=== PATIENT | female | born 1945 | race Caucasian/White ===

== ENCOUNTER → 2021-01-14 | Outpatient (CLI) | payer MEDICARE ==
[2017-01-27 07:52] VITALS: BP 76/52
[~2021-01-14] MED LIST: ALPR1TAB6 PO; ASPI-482 PO; BUSP15TA PO; CARV12.511 PO; CHOL100013 PO; CITA40TA5 PO; DIAZ5TAB4 PO; GLUC100018 PO; HYDR-2765 PO; HYDR-3135 PO; IRBE300T23 PO; ISOS60TA55 PO; LISI20TA18 PO; OXYC1TAB7 PO; PANT40TA77 PO; SULF1TAB24 PO; VENTOLIN HFA18 GM INH; WARF4TAB68 PO
[2021-01-14 08:25] LABS: CALCIUM 8.4 mg/dL (8.5-10.1); CREATININE 0.6 mg/dL (0.6-1.0); GFR 97.7
== END ==
LOC: LAB 07:40
PROVIDERS: ATTEND Internal Medicine Cardiovascular Disease
DX: R60.0 Localized edema (principal)
CPT/HCPCS: 36415; 80048

== ENCOUNTER 2021-04-30 18:45 | Inpatient (IN) | payer MEDICARE ==
[~2021-04-30] VITALS: Ht 165.1 cm; Wt 117.5 kg
[2021-04-30] MEDS ORDERED: ONDANSETRON PF 4 MG/2 ML VIAL. IVP ONE (19:00)
[2021-04-30] MEDS ORDERED: fentaNYL PF VIAL 100 MCG/2 ML VIAL IVP ONE (19:00)
--- NOTE | 2021-04-30 19:31 | PHYS DOC ---
Past Medical History Past Medical History: Anxiety, Arrhythmia, Hypertension, Pneumonia Additional Past Medical Histor: right hip dislocation x3 Past Surgical History: Hip Replacement, Knee Replacement Additional Past Surgical Histo: L knee and R hip Smoking Status: Current Every Day Smoker Alcohol Use: Occasionally Drug Use: None General Adult EDM: Chief Complaint: ABDOMINAL PAIN HPI: HPI: Patient is a 75 year old female who presents with 2 days of nausea, vomiting, constipation, right lower quadrant pain and dizziness with standing. She states that she did take a laxative when she had a small bowel movement yesterday. She is also complaining of lower bilateral edema but states her primary care recently started her on a "water pill." Denies fever, chest pain, syncope, headache, vision change, numbness or tingling, diarrhea, shortness of breath, burning with urination, flank pain. She is a history of hypertension, COPD, smoking, anxiety, arrhythmia, pneumonia, gastric bypass, she is right hip dislocation x3, knee replacement. Review of Systems: Review of Systems: Constitutional: Denies fever or chills. [] Eyes: Denies change in visual acuity. [] HENT: Denies nasal congestion or sore throat. [] Respiratory: Denies cough or shortness of breath. [] Cardiovascular: Denies chest pain or + bilateral lower edema. [] GI: +abdominal pain, +nausea, +vomiting, denies bloody stools or diarrhea. +constipation[] : Denies dysuria. [] Musculoskeletal: Denies back pain or joint pain. [] Integument: Denies rash. [] Neurologic: Denies headache, focal weakness or sensory changes. +dizziness with standing[] Endocrine: Denies polyuria or polydipsia. [] Lymphatic: Denies swollen glands. [] Psychiatric: Denies depression or anxiety. [] Heart Score: C/O Chest Pain: No Current Medications: Current Medications Medications (Trade) Dose Ordered Sig/Ashlie Start Time Stop Time Status Last Admin Dose Admin Fentanyl Citrate (Fentanyl 2ml Vial) 25 mcg 1X ONCE 04/30/21 19:00 04/30/21 19:01 DC Ondansetron HCl (Zofran) 4 mg 1X ONCE 04/30/21 19:00 04/30/21 19:01 DC Allergies: Allergies: Allergies Coded Allergies Type Severity Reaction Last Updated Verified Iodinated Contrast Media Allergy Severe 01/28/16 Yes Physical Exam: PE: Constitutional: Well developed, well nourished, no acute distress, non-toxic appearance. [] HENT: Normocephalic, atraumatic, bilateral external ears normal, oropharynx moist, no oral exudates, nose normal. [] Eyes: PERRLA, EOMI, conjunctiva normal, no discharge. [] Neck: Normal range of motion, no tenderness, supple, no stridor. [] Cardiovascular:Heart rate regular rhythm, no murmur [] Lungs & Thorax: Bilateral breath sounds clear to auscultation [] Abdomen: Bowel sounds normal, soft, RLQ tenderness, no masses, no pulsatile masses. [] Skin: Warm, dry, no erythema, no rash. Pale[] Back: No tenderness, no CVA tenderness. [] Extremities: No tenderness, no cyanosis, no clubbing, ROM intact, bilateral lower 2+ edema. [] Neurologic: Alert and oriented X 3, normal motor function, normal sensory function, no focal deficits noted. [] Psychologic: Affect normal, judgement normal, mood normal. [] EKG: EK and read by Dr. Ramsey is a sinus rhythm and no STEMI Radiology/Procedures: Radiology/Procedures: [] Impression: [facility] [address] [place] [address] IMAGING REPORT Signed PATIENT: VON WILSONNEACCOUNT: [id number] : 1945 LOCATION: ER AGE: 75 SEX: F EXAM STATUS: REG ER ORD. PHYSICIAN: NENA CURRY APRN REASON: soa, vomiting PROCEDURE: PORTABLE CHEST 1V XR CHEST 1V History: Reason: soa, vomiting / Spl. Instructions: / History: Comparison: September 03, 2016 Findings: Patchy bibasilar opacities. No pleural effusion. No pneumothorax. Portable technique accentuates cardiac size. Chronic left-sided rib fractures. Impression: 1. Patchy bibasilar opacities, may represent atelectasis or developing consolidations. Recommend follow-up. Electronically signed by: Maurice Lee DO (04/30/2021 7:34 PM) [facility] DICTATED and SIGNED BY: MAURICE LEE DO DATE: 04/30/21 [id number] [facility] [address] [place] [address] IMAGING REPORT Signed PATIENT: ROSE WILSON: [id number] : 1945 LOCATION: ER AGE: 75 SEX: F EXAM STATUS: REG ER ORD. PHYSICIAN: NENA CURRY APRN REASON: abd pain, tenderness, vomiting PROCEDURE: CT ABDOMEN PELVIS WO CONTRAST Exam: CT of abdomen and pelvis without contrast INDICATION: Abdominal pain, tenderness, vomiting TECHNIQUE: Sequential axial images through the abdomen and pelvis obtained without IV contrast. Sagittal and coronal reformatted images were reconstructed from the axial data and reviewed. Exposure: One or more of the following in the visualized dose reduction techni ques were utilized for this examination: 1. Automated exposure control 2. Adjustment of the MA and/or KV according to patient size 3. Use of iterative of reconstructive technique Comparisons: None FINDINGS: Heart size is normal. No pericardial effusion. Strandy opacities at the dependent portion lungs likely representing atelectasis. No pleural effusion. Evaluation of the solid abdominal organs is limited secondary to noncontrast technique. Liver, spleen, pancreas and adrenals are unremarkable. Gallbladder is decompressed. No perinephric inflammation or hydronephrosis. No renal or ureteral calculi are identified. Simple appearing left renal cyst is noted. Bladder is decompressed not well evaluated. Uterus not enlarged. No abnormal adnexal mass. Diverticulosis is noted in the descending and sigmoid colon. Postoperative changes of gastric bypass are noted. No obstruction. No free intra-abdominal air or fluid. Abdominal aorta has a normal course and caliber. No enlarged intra-abdominal lymph nodes are identified. No suspicious osseous lesions or acute fractures. Right hip arthroplasty changes are noted. IMPRESSION: 1. Postoperative changes of the abdomen as described above. No evidence for obstruction or acute abnormality. 2. Diverticulosis without evidence of acute diverticulitis. Electronically signed by: Yusuf Hood MD (04/30/2021 8:31 PM) [facility] DICTATED and SIGNED BY: YUSUF HOOD MD DATE: 04/30/[id number] 0 Course & Med Decision Making: Course & Med Decision Making Pertinent Labs and Imaging studies reviewed. (See chart for details) COVID-19 CRITERIA: The patient was evaluated during the global COVID-19 pandemic, and that diagnosis was suspected/considered upon their initial presentation. Their evaluation, treatment and testing was consistent with current guidelines for patients who present with complaints or symptoms that may be related to COVID-19. See HPI. Alert and oriented x4. Ambulatory steady gait. Speaks in full clear sentences. Abdomen is taut and right lower quadrant tenderness. Skin pale warm and dry. Rectal Exam: Normal tone, No mass, Positive control Stool: Brown Guaiac: Negative Hemoglobin is low. I have ordered 2 units of blood. Patient will be admitted to the hospital. Chest x-ray shows some possible developing opacities or consolidations. I have given Zosyn and blood cultures. CT abdomen pelvis showed no acute findings. I talked to Dr. Thompson for admission. He states to also consult GI. [] Aiyana Disclaimer: Aiyana Disclaimer: This electronic medical record was generated, in whole or in part, using a voice recognition dictation system. COVID-19 Patient Risks: Age 65 or older: Yes Sign of co-morbidity: Yes Exp to person + for COVID: No Exp to PUI: No Travel from affected area: No Lower respiratory symptoms: Yes Fever: No Other: Yes (N,V) PPE Use: Full PPE with N95 mask or PAPR: Yes Departure Departure Impression: Primary Impression: Anemia Qualified Codes: D64.9 - Anemia, unspecified Additional Impressions: Person under investigation for COVID-19 UTI (urinary tract infection) Qualified Codes: N39.0 - Urinary tract infection, site not specified Disposition: ADMITTED INPATIENT Admitting Physician: EVELINA Condition: STABLE Referrals: BRITTA ANDRADE (PCP) NENA CURRY FOREMAN OR SUPERVISOR AND OPERATOR Apr 30, 2021 19:31
--- NOTE | 2021-04-30 19:36 | RAD ---
XR CHEST 1V History: Reason: soa, vomiting / Spl. Instructions: / History: Comparison: September 03, 2016 Findings: Patchy bibasilar opacities. No pleural effusion. No pneumothorax. Portable technique accentuates card iac size. Chronic left-sided rib fractures. Impression: 1. Patchy bibasilar opacities, may represent atelectasis or developing consolidations. Recommend fol low-up. Electronically signed by: Maurice Lee DO (04/30/2021 7:34 PM) [facility]
[2021-04-30 20:04] LABS: BASO # 0.1 x10^3/uL (0.0-0.2); BASO % 1 % (0-3); EOS # 0.1 x10^3/uL (0.0-0.7); EOS % 2 % (0-3); LYMPH % 21 % (24-48); MEAN CORPUSCULAR HEMOGLOBIN 15 pg (25-35); MEAN CORPUSCULAR HGB CONC 28 g/dL (31-37); MEAN CORPUSCULAR VOLUME 54 fL (79-100); MONO # 0.4 x10^3/uL (0.0-1.1); MONO % 9 % (0-9); NEUT # 3.2 x10^3/uL (1.8-7.7); NEUT % 67 % (31-73); PLATELET COUNT 303 x10^3/uL (140-400); RED BLOOD COUNT 3.16 x10^6/uL (3.50-5.40); RED CELL DISTRIBUTION WIDTH 21.3 % (11.5-14.5); WHITE BLOOD COUNT 4.8 x10^3/uL (4.0-11.0)
[2021-04-30 20:07] LABS: HEMATOCRIT 17.1 % (36.0-47.0); HEMOGLOBIN 4.9 g/dL (12.0-15.5)
[2021-04-30 20:12] LABS: CALCIUM 8.9 mg/dL (8.5-10.1); CREATININE 0.6 mg/dL (0.6-1.0); GFR 97.7; POTASSIUM 3.4 mmol/L (3.5-5.1)
[2021-04-30] MEDS ORDERED: IV NORMAL SALINE 1000ML BAG 1,000 ML IV ONE (20:15)
[2021-04-30] MEDS ORDERED: PIPERACILLIN/TAZOBACTAM 3.375 GM in IV NORMAL SALINE 50ML 50 ML IV ONE (20:15)
[2021-04-30 20:18] LABS: ALBUMIN 2.8 g/dL (3.4-5.0); ALBUMIN/GLOBULIN RATIO 0.8 (1.0-1.7); TOTAL BILIRUBIN 1.3 mg/dL (0.2-1.0); TOTAL PROTEIN 6.4 g/dL (6.4-8.2)
--- NOTE | 2021-04-30 20:34 | RAD ---
Exam: CT of abdomen and pelvis without contrast INDICATION: Abdominal pain, tenderness, vomiting TECHNIQUE: Sequential axial images through the abdomen and pelvis obtained without IV contrast. Sagit willy and coronal reformatted images were reconstructed from the axial data and reviewed. Exposure: One or more of the following in the visualized dose reduction techniques were utilized for this examination: 1. Automated exposure control 2. Adjustment of the MA and/or KV according to patient size 3. Use of iterative of reconstructive technique Comparisons: None FINDINGS: Heart size is normal. No pericardial effusion. Strandy opacities at the dependent portion lungs likel y representing atelectasis. No pleural effusion. Evaluation of the solid abdominal organs is limited secondary to noncontrast technique. Liver, spleen, pancreas and adrenals are unremarkable. Gallbladder is decompressed. No perinephric inflammation or hydronephrosis. No renal or ureteral calculi are identified. Simple ap pearing left renal cyst is noted. Bladder is decompressed not well evaluated. Uterus not enlarged. No abnormal adnexal mass. Diverticulosis is noted in the descending and sigmoid colon. Postoperative changes of gastric bypass are noted. No obstruction. No free intra-abdominal air or fluid. Abdominal aorta has a normal course and caliber. No enlarged intra-abdominal lymph nodes are identified. No suspicious osseous lesions or acute fractures. Right hip arthroplasty changes are noted. IMPRESSION: 1. Postoperative changes of the abdomen as described above. No evidence for obstruction or acute abn ormality. 2. Diverticulosis without evidence of acute diverticulitis. Electronically signed by: Yusuf Mckenna MD (04/30/2021 8:31 PM) [facility]
[2021-04-30 20:39] LABS: ANISOCYTOSIS MARKED; HYPOCHROMIA MARKED; MICROCYTOSIS MARKED; PLT ESTIMATE ADEQUATE (ADEQUATE); POIKILOCYTOSIS SLIGHT
[2021-04-30 20:40] LABS: OVALOCYTES MOD; POLYCHROMASIA SLIGHT; SPHEROCYTES OCC
[2021-04-30 20:41] LABS: SCHISTOCYTES OCC
[2021-04-30] MEDS ORDERED: ONDANSETRON PF 4 MG/2 ML VIAL. IVP PRN (21:00)
[2021-04-30] MEDS ORDERED: ACETAMINOPHEN 325 MG TABLET. PO PRN (21:00)
[2021-04-30 21:12] LABS: BILIRUBIN,URINE SMALL (NEG); CLARITY,URINE CLEAR; NITRITE,URINE POSITIVE (NEG); PROTEIN,URINE 30 mg/dL (NEG-TRACE)
[2021-04-30 21:14] LABS: PROTHROMBIN TIME PATIENT 13.9 SEC (11.7-14.0)
[2021-04-30 21:21] LABS: COLOR,URINE DK YELLOW
[2021-04-30 21:22] LABS: BACTERIA,URINE MANY /HPF (0-FEW)
[2021-04-30 21:23] LABS: HYALINE CASTS, URINE MANY /HPF
[2021-04-30 21:26] LABS: RBC,URINE 0 /HPF (0-2)
[2021-04-30 21:50] LABS: FECAL OB PT NEGATIVE (NEG)
[2021-04-30 22:47] VITALS: BP 119/47
--- NOTE | 2021-04-30 23:00 | EKG ---
[facility] [address] [place] [address] Test Date: 2021-04-30 Test Time: 19:44:18 Pat Name: KEKE WILSON Department: Room: Gender: F Hotel Attendant: : 1945 Requested By: NENA CURRY Order Number: [id number] Reading MD: Measurements Intervals [place] Rate: 65 P: 36 MT: 208 QRS: -28 QRSD: 98 T: -9 QT: 434 QTc: 452 Interpretive Statements SINUS RHYTHM LEFTWARD AXIS T ABNORMALITY IN ANTERIOR LEADS ABNORMAL ECG RI6.02 Compared to ECG 04/30/2021 19:42:51 Prolonged QT interval no longer present T-wave abnormality still present
[2021-04-30 23:02] VITALS: BP 128/46
[2021-05-01] VITALS (15 sets, daily range): BP systolic 95–169; BP diastolic 42–61
--- NOTE | 2021-05-01 00:09 | NUR ---
The patient, KEKE WILSON, 75 y/o, F admitted by CHRIS GOODWIN MD, was given written information regarding hospital policies, unit procedures and contact persons. Valuables were checked and left with her.
--- NOTE | 2021-05-01 07:31 | PDOC1 ---
History and Physical Date of Admission Date of Admission DATE: 05/01/21 TIME: 07:09 Identification/Chief Complaint Chief Complaint Nausea, vomiting Source Source: Chart review, Patient History of Present Illness History of Present Illness Patient is 75-year-old female with past medical history COPD, HTN, gastric bypass surgery, presents to the ED with complaints of nausea and abdominal pain for the past 2 days. She describes her nausea is more of a "sour stomach". She is a history of similar symptoms in the past following her gastric bypass surgery, but the last time she had any similar symptoms was years ago. She also reports associated dyspnea on exertion, lethargy, and lightheadedness. She denies any melena, hematochezia, vomiting, hematemesis, fever, chest pain, syncope, dysuria, or headache. She denies any history of gastric ulcers or history of anemia. She has been vaccinated against COVID-19. Labs admission showed hemoglobin 4.9, hematocrit 17.1, MCV 54, potassium 3.4, albumin 2.8. Urinalysis was positive for nitrites, with small leukocyte esterase, many bacteria, and moderate squamous epithelial cells. Her rapid COVID-19 was negative, and her occult blood was negative. She received IV fluids and IV antibiotics in the ED. At the time my evaluation she is hungry and requesting food. Will admit patient for further medical management. Past Medical History Past Medical History COPD, HTN, CAD, arrhythmia, anxiety, right hip dislocation Past Surgical History Past Surgical History Appendectomy, cholecystectomy, gastric bypass, cardiac stent, right knee replacement, hip replacemen Family History Family History: Hypertension Social History Smoke: 1 pack per day ALCOHOL: none Drugs: None Current Problem List Problem List Problems Medical Problems: (1) Abdominal pain Status: Acute (2) Anemia Status: Acute (3) Nausea & vomiting Status: Acute (4) Person under investigation for COVID-19 Status: Acute (5) UTI (urinary tract infection) Status: Acute Current Medications Current Medications Current Medications Fentanyl Citrate (Fentanyl 2ml Vial) 25 mcg 1X ONCE IVP Last administered on 04/30/21at 20:01; Start 04/30/21 at 19:00; Stop 04/30/21 at 19:01; Status DC Ondansetron HCl (Zofran) 4 mg 1X ONCE IVP Last administered on 04/30/21at 20:01; Start 04/30/21 at 19:00; Stop 04/30/21 at 19:01; Status DC Sodium Chloride 1,000 ml @ 1,000 mls/hr 1X ONCE IV Last administered on 04/30/21at 21:33; Start 04/30/21 at 20:15; Stop 04/30/21 at 21:14; Status DC Piperacillin Sod/ Tazobactam Sod 3.375 gm/Sodium Chloride 50 ml @ 100 mls/hr 1X ONCE IV Last administered on 04/30/21at 21:33; Start 04/30/21 at 20:15; Stop 04/30/21 at 20:44; Status DC Ondansetron HCl (Zofran) 4 mg PRN Q8HRS PRN IVP NAUSEA/VOMITING 1ST CHOICE; Start 04/30/21 at 21:00; Stop 05/01/21 at 20:59 Acetaminophen (Tylenol) 650 mg PRN Q4HRS PRN PO FEVER > 100.3'F; Start 04/30/21 at 21:00; Stop 05/01/21 at 20:59 Active Scripts Active Protonix (Pantoprazole Sodium) 40 Mg Tablet.dr 1 Tab PO BID Reported Diazepam 5 Mg Tablet 5 Mg PO HS Irbesartan 300 Mg Tablet 0.5 Tab PO DAILY Alprazolam 1 Mg Tablet 1 Tab PO BID Carvedilol (Carvedilol) 12.5 Mg Tablet 1 Tab PO BID Isosorbide Mononitrate Er (Isosorbide Mononitrate) 60 Mg Tab.er.24h 1 Tab PO DAILY Allergies Allergies: Coded Allergies: Iodinated Contrast Media (Verified Allergy, Severe, 01/28/16) ROS Review of System GENERAL: No history of weight change, weakness or fevers. SKIN: No bruising, hair changes or rashes. EYES: No blurred, double or loss of vision. NOSE AND THROAT: No history of nosebleeds, hoarseness or sore throat. HEART: Denies chest pain, denies palpitations. LUNGS: Denies cough, hemoptysis, wheezing or shortness of breath. GASTROINTESTINAL: Nausea, vomiting, abdominal pain. Denies hematemesis or melena. GENITOURINARY: Denies dysuria, frequency, urgency, hematuria. NEUROLOGIC: Denies history of numbness, tingling, tremor or weakness. PSYCHIATRIC: Denies anxiety, denies depression. ENDOCRINE: No history of heat or cold intolerance, polyuria or polydipsia. EXTREMITIES: Denies muscle weakness, joint pain, pain on walking or stiffness. Physical Exam Physical Exam General: Alert, Oriented X3, Cooperative, No acute distress. Morbidly obese. HEENT: PERRLA, EOMI Lungs: Decreased breath sounds bilaterally, Normal air movement Heart: RRR, no murmurs Cardiovascular: S1, S2 Abdomen: Mild right lower quadrant abdominal tenderness. Normal bowel sounds, Soft. Extremities: +1 bilateral lower extremity edema. No clubbing, No cyanosis Skin: Pale appearing. No rashes, No significant lesion Neuro: Normal speech, Normal tone, Sensation intact Psych/Mental Status: Mental status NL, Mood NL Vitals Vitals Vital Signs Date Time Temp Pulse Resp B/P (MAP) Pulse Ox O2 Delivery O2 Flow Rate FiO2 05/01/21 04:52 98.0 68 18 111/59 98.0 05/01/21 03:11 95 Room Air Labs Labs Laboratory Tests Test 04/30/21 19:53 04/30/21 20:54 04/30/21 20:56 04/30/21 21:40 White Blood Count 4.8 x10^3/uL (4.0-11.0) Red Blood Count 3.16 x10^6/uL (3.50-5.40) Hemoglobin 4.9 g/dL (12.0-15.5) Hematocrit 17.1 % (36.0-47.0) Mean Corpuscular Volume 54 fL (79-100) Mean Corpuscular Hemoglobin 15 pg (25-35) Mean Corpuscular Hemoglobin Concent 28 g/dL (31-37) Red Cell Distribution Width 21.3 % (11.5-14.5) Platelet Count 303 x10^3/uL (140-400) Neutrophils (%) (Auto) 67 % (31-73) Lymphocytes (%) (Auto) 21 % (24-48) Monocytes (%) (Auto) 9 % (0-9) Eosinophils (%) (Auto) 2 % (0-3) Basophils (%) (Auto) 1 % (0-3) Neutrophils # (Auto) 3.2 x10^3/uL (1.8-7.7) Lymphocytes # (Auto) 1.0 x10^3/uL (1.0-4.8) Monocytes # (Auto) 0.4 x10^3/uL (0.0-1.1) Eosinophils # (Auto) 0.1 x10^3/uL (0.0-0.7) Basophils # (Auto) 0.1 x10^3/uL (0.0-0.2) Platelet Estimate Adequate (ADEQUATE) Polychromasia Slight Hypochromasia Marked Poikilocytosis Slight Anisocytosis Marked Microcytosis Marked Spherocytes Occ Ovalocytes Mod Schistocytes Occ Sodium Level 139 mmol/L (136-145) Potassium Level 3.4 mmol/L (3.5-5.1) Chloride Level 104 mmol/L (98-107) Carbon Dioxide Level 27 mmol/L (21-32) Anion Gap 8 (6-14) Blood Urea Nitrogen 7 mg/dL (7-20) Creatinine 0.6 mg/dL (0.6-1.0) Estimated GFR (Cockcroft-Gault) 97.7 BUN/Creatinine Ratio 12 (6-20) Glucose Level 118 mg/dL (70-99) Lactic Acid Level 1.6 mmol/L (0.4-2.0) Calcium Level 8.9 mg/dL (8.5-10.1) Magnesium Level 1.9 mg/dL (1.8-2.4) Total Bilirubin 1.3 mg/dL (0.2-1.0) Aspartate Amino Transf (AST/SGOT) 18 U/L (15-37) Alanine Aminotransferase (ALT/SGPT) 7 U/L (14-59) Alkaline Phosphatase 134 U/L (46-116) Troponin I Quantitative < 0.017 ng/mL (0.000-0.055) Total Protein 6.4 g/dL (6.4-8.2) Albumin 2.8 g/dL (3.4-5.0) Albumin/Globulin Ratio 0.8 (1.0-1.7) Lipase 57 U/L (73-393) Prothrombin Time 13.9 SEC (11.7-14.0) Prothromb Time International Ratio 1.1 (0.8-1.1) Activated Partial Thromboplast Time 37 SEC (24-38) SARS-CoV-2 Antigen (Rapid) Negative (NEGATIVE) Urine Collection Type Unknown Urine Color Dk yellow Urine Clarity Clear Urine pH 6.0 (<5.0-8.0) Urine Specific [place] 1.025 (1.000-1.030) Urine Protein 30 mg/dL (NEG-TRACE) Urine Glucose (UA) Negative mg/dL (NEG) Urine Ketones (Stick) Trace mg/dL (NEG) Urine Blood Negative (NEG) Urine Nitrite Positive (NEG) Urine Bilirubin Small (NEG) Urine Urobilinogen Dipstick 1.0 mg/dL (0.2 mg/dL) Urine Leukocyte Esterase Small (NEG) Urine RBC 0 /HPF (0-2) Urine WBC 11-20 /HPF (0-4) Urine Squamous Epithelial Cells Mod /LPF Urine Bacteria Many /HPF (0-FEW) Urine Hyaline Casts Many /HPF Urine Mucus Marked /LPF Stool Occult Blood Negative (NEG) Laboratory Tests Test 04/30/21 19:53 04/30/21 20:54 04/30/21 20:56 04/30/21 21:40 White Blood Count 4.8 x10^3/uL (4.0-11.0) Red Blood Count 3.16 x10^6/uL (3.50-5.40) Hemoglobin 4.9 g/dL (12.0-15.5) Hematocrit 17.1 % (36.0-47.0) Mean Corpuscular Volume 54 fL (79-100) Mean Corpuscular Hemoglobin 15 pg (25-35) Mean Corpuscular Hemoglobin Concent 28 g/dL (31-37) Red Cell Distribution Width 21.3 % (11.5-14.5) Platelet Count 303 x10^3/uL (140-400) Neutrophils (%) (Auto) 67 % (31-73) Lymphocytes (%) (Auto) 21 % (24-48) Monocytes (%) (Auto) 9 % (0-9) Eosinophils (%) (Auto) 2 % (0-3) Basophils (%) (Auto) 1 % (0-3) Neutrophils # (Auto) 3.2 x10^3/uL (1.8-7.7) Lymphocytes # (Auto) 1.0 x10^3/uL (1.0-4.8) Monocytes # (Auto) 0.4 x10^3/uL (0.0-1.1) Eosinophils # (Auto) 0.1 x10^3/uL (0.0-0.7) Basophils # (Auto) 0.1 x10^3/uL (0.0-0.2) Platelet Estimate Adequate (ADEQUATE) Polychromasia Slight Hypochromasia Marked Poikilocytosis Slight Anisocytosis Marked Microcytosis Marked Spherocytes Occ Ovalocytes Mod Schistocytes Occ Sodium Level 139 mmol/L (136-145) Potassium Level 3.4 mmol/L (3.5-5.1) Chloride Level 104 mmol/L (98-107) Carbon Dioxide Level 27 mmol/L (21-32) Anion Gap 8 (6-14) Blood Urea Nitrogen 7 mg/dL (7-20) Creatinine 0.6 mg/dL (0.6-1.0) Estimated GFR (Cockcroft-Gault) 97.7 BUN/Creatinine Ratio 12 (6-20) Glucose Level 118 mg/dL (70-99) Lactic Acid Level 1.6 mmol/L (0.4-2.0) Calcium Level 8.9 mg/dL (8.5-10.1) Magnesium Level 1.9 mg/dL (1.8-2.4) Total Bilirubin 1.3 mg/dL (0.2-1.0) Aspartate Amino Transf (AST/SGOT) 18 U/L (15-37) Alanine Aminotransferase (ALT/SGPT) 7 U/L (14-59) Alkaline Phosphatase 134 U/L (46-116) Troponin I Quantitative < 0.017 ng/mL (0.000-0.055) Total Protein 6.4 g/dL (6.4-8.2) Albumin 2.8 g/dL (3.4-5.0) Albumin/Globulin Ratio 0.8 (1.0-1.7) Lipase 57 U/L (73-393) Prothrombin Time 13.9 SEC (11.7-14.0) Prothromb Time International Ratio 1.1 (0.8-1.1) Activated Partial Thromboplast Time 37 SEC (24-38) SARS-CoV-2 Antigen (Rapid) Negative (NEGATIVE) Urine Collection Type Unknown Urine Color Dk yellow Urine Clarity Clear Urine pH 6.0 (<5.0-8.0) Urine Specific [place] 1.025 (1.000-1.030) Urine Protein 30 mg/dL (NEG-TRACE) Urine Glucose (UA) Negative mg/dL (NEG) Urine Ketones (Stick) Trace mg/dL (NEG) Urine Blood Negative (NEG) Urine Nitrite Positive (NEG) Urine Bilirubin Small (NEG) Urine Urobilinogen Dipstick 1.0 mg/dL (0.2 mg/dL) Urine Leukocyte Esterase Small (NEG) Urine RBC 0 /HPF (0-2) Urine WBC 11-20 /HPF (0-4) Urine Squamous Epithelial Cells Mod /LPF Urine Bacteria Many /HPF (0-FEW) Urine Hyaline Casts Many /HPF Urine Mucus Marked /LPF Stool Occult Blood Negative (NEG) Images Images PATIENT: NATHAN WILSONOUNT: [id number] : 1945 LOCATION: ER AGE: 75 SEX: F EXAM STATUS: REG ER ORD. PHYSICIAN: NENA CURRY APRN REASON: soa, vomiting PROCEDURE: PORTABLE CHEST 1V XR CHEST 1V History: Reason: soa, vomiting / Spl. Instructions: / History: Comparison: September 03, 2016 Findings: Patchy bibasilar opacities. No pleural effusion. No pneumothorax. Portable technique accentuates cardiac size. Chronic left-sided rib fractures. Impression: 1. Patchy bibasilar opacities, may represent atelectasis or developing consolidations. Recommend follow-up. PATIENT: NATHAN WILSONOUNT: [id number] : 1945 LOCATION: ER AGE: 75 SEX: F EXAM STATUS: REG ER ORD. PHYSICIAN: NENA CURRY APRN REASON: abd pain, tenderness, vomiting PROCEDURE: CT ABDOMEN PELVIS WO CONTRAST Exam: CT of abdomen and pelvis without contrast INDICATION: Abdominal pain, tenderness, vomiting TECHNIQUE: Sequential axial images through the abdomen and pelvis obtained without IV contrast. Sagittal and coronal reformatted images were reconstructed from the axial data and reviewed. Exposure: One or more of the following in the visualized dose reduction techniques were utilized for this examination: 1. Automated exposure control 2. Adjustment of the MA and/or KV according to patient size 3. Use of iterative of reconstructive technique Comparisons: None FINDINGS: Heart size is normal. No pericardial effusion. Strandy opacities at the dependent portion lungs likely representing atelectasis. No pleural effusion. Evaluation of the solid abdominal organs is limited secondary to noncontrast technique. Liver, spleen, pancreas and adrenals are unremarkable. Gallbladder is decompressed. No perinephric inflammation or hydronephrosis. No renal or ureteral calculi are identified. Simple appearing left renal cyst is noted. Bladder is decompressed not well evaluated. Uterus not enlarged. No abnormal adnexal mass. Diverticulosis is noted in the descending and sigmoid colon. Postoperative changes of gastric bypass are noted. No obstruction. No free intra-abdominal air or fluid. Abdominal aorta has a normal course and caliber. No enlarged intra-abdominal lymph nodes are identified. No suspicious osseous lesions or acute fractures. Right hip arthroplasty changes are noted. IMPRESSION: 1. Postoperative changes of the abdomen as described above. No evidence for obstruction or acute abnormality. 2. Diverticulosis without evidence of acute diverticulitis. VTE Prophylaxis Ordered VTE Prophylaxis Devices: Yes VTE Pharmacological Prophylaxi: No Assessment/Plan Assessment/Plan Severe microcytic anemia Moderate malnutrition HTN History COPD Moderate malnutrition Plan: Hemoglobin 4.9, hematocrit 17.1 on admission. Patient will be transfused 2 unit packed red blood cells. Fecal occult blood negative. We will continue to monitor hemoglobin for any evidence of ongoing bleeding. CRP and procalcitonin pending; if significantly elevated will continue treatment for possible community-acquired pneumonia Asymptomatic bacteriuria does not require antibiotic treatment Resume home medications FEN - Cardiac diet PPX - SCDs FULL CODE Dispo - inpatient for above Patient names her (Edi Pagan) as her surrogate decision-maker Justifications for Admission Other Justification CHARLEY YOUNG MD May 01, 2021 07:31
--- NOTE | 2021-05-01 09:23 | PDOC2 ---
GI CONSULT Date of Service: DATE: 05/01/21 TIME: 09:22 Reason For Consult: anemia, abdominal pain HPI: HPI: Pleasant 75 y/o female evaluated in ER for several reasons including pelvic pain ("ovary pain"), nausea, constipation, dizziness, and palpitations. Labs noted Hgb 4.4, MCV 54, RDW 21.3, normal plt and INR, BUN 7, Ct 0.6, Alk Phos 134, negative Hemoccult. For comparison, Hgb was in 11-12 range in 01/2017. Denies h/o anemia. Denies hematemesis, hematochezia, and melena. H/o occasional reflux improved w/ OTC chewable medications PRN. No dysphagia, vomiting, diarrhea, change in appetite, or weight loss. Typically no issues w/ constipation except for lately has been straining to pass very hard stools; some help with Miralax. S/p gastric bypass for weight loss 40 years ago. Reports normal colonoscopy in [place] a couple years ago except for two benign polyps. Diverticulosis noted on imaging. S/p cholecystectomy. Denies liver, pancreas, and PUD history. Takes ASA 325mg QD; doesn't think she takes other blood thinning medications but her will bring her med list later. Tolerating regular diet this morning. Vaccinated for COVID, rapid test negative. Feels better this morning - denies nausea and pelvic pain and has tolerated breakfast. PMH: PMH: ?CAD, HTN, COPD, renal cysts, UTI right hip replacement, left knee replacement, breast reduction, gastric bypass, appendectomy, cholecystectomy FH: Family History: Cancer (unknown kind) Social History: Smoke: Quit ALCOHOL: rare Drugs: None ROS: GEN: Denies fevers, chills, sweats HEENT: Denies blurred vision, sore throat CV:+palpitations RESP: +cough GI: Per HPI : Denies hematuria, dysuria ENDO: Denies weight changes NEURO: +dizziness MSK: Denies weakness, joint pain/swelling SKIN: Denies jaundice, pruritus Vitals: Vitals: Vital Signs Date Time Temp Pulse Resp B/P (MAP) Pulse Ox O2 Delivery O2 Flow Rate FiO2 05/01/21 07:00 98.2 71 16 125/44 (71) 91 Room Air 98.2 Labs: Labs: Laboratory Tests Test 04/30/21 19:53 04/30/21 20:54 04/30/21 20:56 04/30/21 21:40 White Blood Count 4.8 x10^3/uL (4.0-11.0) Red Blood Count 3.16 x10^6/uL (3.50-5.40) Hemoglobin 4.9 g/dL (12.0-15.5) Hematocrit 17.1 % (36.0-47.0) Mean Corpuscular Volume 54 fL (79-100) Mean Corpuscular Hemoglobin 15 pg (25-35) Mean Corpuscular Hemoglobin Concent 28 g/dL (31-37) Red Cell Distribution Width 21.3 % (11.5-14.5) Platelet Count 303 x10^3/uL (140-400) Neutrophils (%) (Auto) 67 % (31-73) Lymphocytes (%) (Auto) 21 % (24-48) Monocytes (%) (Auto) 9 % (0-9) Eosinophils (%) (Auto) 2 % (0-3) Basophils (%) (Auto) 1 % (0-3) Neutrophils # (Auto) 3.2 x10^3/uL (1.8-7.7) Lymphocytes # (Auto) 1.0 x10^3/uL (1.0-4.8) Monocytes # (Auto) 0.4 x10^3/uL (0.0-1.1) Eosinophils # (Auto) 0.1 x10^3/uL (0.0-0.7) Basophils # (Auto) 0.1 x10^3/uL (0.0-0.2) Platelet Estimate Adequate (ADEQUATE) Polychromasia Slight Hypochromasia Marked Poikilocytosis Slight Anisocytosis Marked Microcytosis Marked Spherocytes Occ Ovalocytes Mod Schistocytes Occ Sodium Level 139 mmol/L (136-145) Potassium Level 3.4 mmol/L (3.5-5.1) Chloride Level 104 mmol/L (98-107) Carbon Dioxide Level 27 mmol/L (21-32) Anion Gap 8 (6-14) Blood Urea Nitrogen 7 mg/dL (7-20) Creatinine 0.6 mg/dL (0.6-1.0) Estimated GFR (Cockcroft-Gault) 97.7 BUN/Creatinine Ratio 12 (6-20) Glucose Level 118 mg/dL (70-99) Lactic Acid Level 1.6 mmol/L (0.4-2.0) Calcium Level 8.9 mg/dL (8.5-10.1) Magnesium Level 1.9 mg/dL (1.8-2.4) Total Bilirubin 1.3 mg/dL (0.2-1.0) Aspartate Amino Transf (AST/SGOT) 18 U/L (15-37) Alanine Aminotransferase (ALT/SGPT) 7 U/L (14-59) Alkaline Phosphatase 134 U/L (46-116) Troponin I Quantitative < 0.017 ng/mL (0.000-0.055) Total Protein 6.4 g/dL (6.4-8.2) Albumin 2.8 g/dL (3.4-5.0) Albumin/Globulin Ratio 0.8 (1.0-1.7) Lipase 57 U/L (73-393) Prothrombin Time 13.9 SEC (11.7-14.0) Prothromb Time International Ratio 1.1 (0.8-1.1) Activated Partial Thromboplast Time 37 SEC (24-38) SARS-CoV-2 Antigen (Rapid) Negative (NEGATIVE) Urine Collection Type Unknown Urine Color Dk yellow Urine Clarity Clear Urine pH 6.0 (<5.0-8.0) Urine Specific [place] 1.025 (1.000-1.030) Urine Protein 30 mg/dL (NEG-TRACE) Urine Glucose (UA) Negative mg/dL (NEG) Urine Ketones (Stick) Trace mg/dL (NEG) Urine Blood Negative (NEG) Urine Nitrite Positive (NEG) Urine Bilirubin Small (NEG) Urine Urobilinogen Dipstick 1.0 mg/dL (0.2 mg/dL) Urine Leukocyte Esterase Small (NEG) Urine RBC 0 /HPF (0-2) Urine WBC 11-20 /HPF (0-4) Urine Squamous Epithelial Cells Mod /LPF Urine Bacteria Many /HPF (0-FEW) Urine Hyaline Casts Many /HPF Urine Mucus Marked /LPF Stool Occult Blood Negative (NEG) Allergies: Coded Allergies: Iodinated Contrast Media (Verified Allergy, Severe, 01/28/16) Medications: Current Medications Medications (Trade) Dose Ordered Sig/Ashlie Route PRN Reason Start Time Stop Time Status Last Admin Dose Admin Fentanyl Citrate (Fentanyl 2ml Vial) 25 mcg 1X ONCE IVP 04/30/21 19:00 04/30/21 19:01 DC 04/30/21 20:01 Ondansetron HCl (Zofran) 4 mg 1X ONCE IVP 04/30/21 19:00 04/30/21 19:01 DC 04/30/21 20:01 Sodium Chloride 1,000 ml @ 1,000 mls/hr 1X ONCE IV 04/30/21 20:15 04/30/21 21:14 DC 04/30/21 21:33 Piperacillin Sod/ Tazobactam Sod 3.375 gm/Sodium Chloride 50 ml @ 100 mls/hr 1X ONCE IV 04/30/21 20:15 04/30/21 20:44 DC 04/30/21 21:33 Imaging: Imaging: CT A/P 04/30/21 FINDINGS: Heart size is normal. No pericardial effusion. Strandy opacities at the dependent portion lungs likely representing atelectasis. No pleural effusion. Evaluation of the solid abdominal organs is limited secondary to noncontrast technique. Liver, spleen, pancreas and adrenals are unremarkable. Gallbladder is decompressed. No perinephric inflammation or hydronephrosis. No renal or ureteral calculi are identified. Simple appearing left renal cyst is noted. Bladder is decompressed not well evaluated. Uterus not enlarged. No abnormal adnexal mass. Diverticulosis is noted in the descending and sigmoid colon. Postoperative changes of gastric bypass are noted. No obstruction. No free intra-abdominal air or fluid. Abdominal aorta has a normal course and caliber. No enlarged intra-abdominal lymph nodes are identified. No suspicious osseous lesions or acute fractures. Right hip arthroplasty changes are noted. IMPRESSION: 1. Postoperative changes of the abdomen as described above. No evidence for obstruction or acute abnormality. 2. Diverticulosis without evidence of acute diverticulitis. CXR 04/30 Impression: 1. Patchy bibasilar opacities, may represent atelectasis or developing consolidations. Recommend follow-up. PE: GEN: NAD, sitting up in bed HEENT: Atraumatic, PERRLA LUNGS: diminished anteriorly HEART: RRR ABD: quiet BS, soft, large/obese, non-tender EXTREMITY: trace edema BLE SKIN: +tattoo NEURO/PSYCH: A & O 3 A/P: A/P: Pelvic pain, nausea, dizziness, palpitations - resolved Microcytic anemia (Hemoccult negative), UTI Occasional acid reflux H/o gastric bypass (40 years ago) CRC screen, h/o polyps - last colonoscopy a couple years ago Diverticulosis Change in bowel habits/constipation S/p cholecystectomy ASA use Rapid COVID negative, abnormal CXR -- Follow labs, transfuse as needed for Hgb > 7. Start PPI, adjust Miralax/treatment for constipation as needed. Check anemia parameters for completeness (though impressive MCV c/w iron deficiency). Consider EGD - will review timing (inpt vs output) w/ Dr. Hanson. Will ask for records from previous colonoscopy. IMELDA ARMIJO May 01, 2021 09:23
[2021-05-01] MEDS ORDERED: BISACODYL 5 MG TABLET.DR. PO PRN (10:00)
[2021-05-01 11:16] LABS: BASO % 1 % (0-3); EOS # 0.1 x10^3/uL (0.0-0.7); EOS % 2 % (0-3); HEMATOCRIT 22.7 % (36.0-47.0); LYMPH # 0.7 x10^3/uL (1.0-4.8); LYMPH % 14 % (24-48); MEAN CORPUSCULAR HEMOGLOBIN 18 pg (25-35); MEAN CORPUSCULAR HGB CONC 30 g/dL (31-37); MONO # 0.5 x10^3/uL (0.0-1.1); MONO % 10 % (0-9); NEUT # 3.8 x10^3/uL (1.8-7.7); NEUT % 74 % (31-73); PLATELET COUNT 265 x10^3/uL (140-400); RED BLOOD COUNT 3.75 x10^6/uL (3.50-5.40); RED CELL DISTRIBUTION WIDTH 26.3 % (11.5-14.5); WHITE BLOOD COUNT 5.1 x10^3/uL (4.0-11.0)
[2021-05-01 11:41] LABS: ALBUMIN 2.7 g/dL (3.4-5.0); ALBUMIN/GLOBULIN RATIO 0.8 (1.0-1.7); CALCIUM 8.4 mg/dL (8.5-10.1); CREATININE 0.8 mg/dL (0.6-1.0); GFR 70.1; POTASSIUM 3.2 mmol/L (3.5-5.1); TOTAL BILIRUBIN 2.2 mg/dL (0.2-1.0); TOTAL PROTEIN 6.2 g/dL (6.4-8.2)
[2021-05-01 11:43] LABS: HEMOGLOBIN 6.7 g/dL (12.0-15.5)
[2021-05-01 11:45] LABS: MEAN CORPUSCULAR VOLUME 60 fL (79-100)
[2021-05-01] MEDS: PANTOPRAZOLE 40 MG TABLET.DR. PO SCH (11:49)
[2021-05-01] MEDS: POLYETHYLENE GLYCOL 3350 17 GM PACKET. PO SCH (11:50)
[2021-05-01] MEDS ORDERED: CLOP75TA PO (12:08)
[2021-05-01] MEDS ORDERED: CARV12.511 PO (12:08)
[2021-05-01] MEDS ORDERED: PANT40TA77 PO (12:08)
[2021-05-01] MEDS ORDERED: DIAZ2TAB PO (12:08)
[2021-05-01] MEDS ORDERED: IRBE150T21 PO (12:08)
[2021-05-01] MEDS ORDERED: DULO30CA2 PO (12:08)
[2021-05-01] MEDS ORDERED: ATOR40TA59 PO (12:08)
[2021-05-01] MEDS ORDERED: CARV25TA2 PO (12:08)
[2021-05-01] MEDS ORDERED: ASPI325T8 PO (12:08)
[2021-05-01] MEDS ORDERED: POTASSIUM CHLORIDE 20 MEQ TABLET.ER. PO ONE (12:30)
--- NOTE | 2021-05-01 12:39 | NUR ---
SW following. Discussed with RN, pt from home with family, room air, cardiac diet. Pt received blood yesterday. COVID-19 negative. GI following. RN advised no SW needs at this time. SW will continue to follow.
[2021-05-01] MEDS: LOSARTAN POTASSIUM 25 MG TABLET. PO SCH (13:10)
[2021-05-01] MEDS: ISOSORBIDE MONONITRATE ER 30 MG TAB.ER.24H PO SCH (13:10)
[2021-05-01] MEDS: DULoxetine HCL 30 MG CAPSULE.DR PO SCH (13:10)
[2021-05-01] MEDS: CLOPIDOGREL BISULFATE 75 MG TABLET PO SCH (13:10)
[2021-05-01] MEDS: ASPIRIN 325 MG TABLET PO SCH (13:10)
[2021-05-01] MEDS: ALPRAZolam 1 MG TABLET PO SCH (14:59)
[2021-05-01] MEDS: CYANOCOBALAMIN (VITAMIN B-12) 1,000 MCG/ML VIAL. IM SCH (15:00)
[2021-05-01] MEDS: CARVEDILOL 12.5 MG TABLET. PO SCH (18:14)
[2021-05-01] MEDS: FERROUS SULFATE 325 MG TABLET. PO SCH (18:15)
[2021-05-01 18:54] LABS: HEMOGLOBIN 7.1 g/dL (12.0-15.5)
[2021-05-01] MEDS: diazePAM 2 MG TABLET PO SCH (20:39)
[2021-05-01] MEDS: ATORVASTATIN CALCIUM 40 MG TABLET. PO SCH (20:40)
[2021-05-02] VITALS (11 sets, daily range): BP systolic 100–164; BP diastolic 41–73
[2021-05-02 06:31] LABS: BASO % 0 % (0-3); EOS # 0.3 x10^3/uL (0.0-0.7); EOS % 6 % (0-3); LYMPH # 0.8 x10^3/uL (1.0-4.8); LYMPH % 18 % (24-48); MEAN CORPUSCULAR HEMOGLOBIN 19 pg (25-35); MEAN CORPUSCULAR HGB CONC 30 g/dL (31-37); MEAN CORPUSCULAR VOLUME 62 fL (79-100); MONO # 0.5 x10^3/uL (0.0-1.1); MONO % 10 % (0-9); NEUT % 65 % (31-73); PLATELET COUNT 245 x10^3/uL (140-400); RED BLOOD COUNT 3.68 x10^6/uL (3.50-5.40); RED CELL DISTRIBUTION WIDTH 29.5 % (11.5-14.5); WHITE BLOOD COUNT 4.6 x10^3/uL (4.0-11.0)
[2021-05-02 06:39] LABS: HEMOGLOBIN 6.8 g/dL (12.0-15.5)
[2021-05-02 06:45] LABS: CALCIUM 7.9 mg/dL (8.5-10.1); CREATININE 0.8 mg/dL (0.6-1.0); GFR 70.1; POTASSIUM 3.4 mmol/L (3.5-5.1)
--- NOTE | 2021-05-02 10:05 | PDOC ---
Date of Service: DATE: 05/02/21 TIME: 10:00 Subjective: Subjective: Feels much better. Still no obvious bleeding. Tolerating diet. Objective: Vital Signs: Vital Signs Date Time Temp Pulse Resp B/P (MAP) Pulse Ox O2 Delivery O2 Flow Rate FiO2 05/02/21 07:00 98.3 70 20 125/44 (71) 90 Room Air 98.3 Labs: Laboratory Tests Test 05/01/21 10:10 05/01/21 18:20 05/02/21 06:12 White Blood Count 5.1 x10^3/uL 4.6 x10^3/uL Red Blood Count 3.79 x10^6/uL 3.68 x10^6/uL Hemoglobin 6.7 g/dL 7.1 g/dL 6.8 g/dL Hematocrit 22.7 % 24.0 % 23.0 % Mean Corpuscular Volume 60 fL 62 fL Mean Corpuscular Hemoglobin 18 pg 19 pg Mean Corpuscular Hemoglobin Concent 30 g/dL 29 g/dL 30 g/dL Red Cell Distribution Width 26.3 % 29.5 % Platelet Count 265 x10^3/uL 245 x10^3/uL Neutrophils (%) (Auto) 74 % 65 % Lymphocytes (%) (Auto) 14 % 18 % Monocytes (%) (Auto) 10 % 10 % Eosinophils (%) (Auto) 2 % 6 % Basophils (%) (Auto) 1 % 0 % Neutrophils # (Auto) 3.8 x10^3/uL 3.0 x10^3/uL Lymphocytes # (Auto) 0.7 x10^3/uL 0.8 x10^3/uL Monocytes # (Auto) 0.5 x10^3/uL 0.5 x10^3/uL Eosinophils # (Auto) 0.1 x10^3/uL 0.3 x10^3/uL Basophils # (Auto) 0.0 x10^3/uL 0.0 x10^3/uL Absolute Reticulocyte Count 0.069 x10^6/uL Percent Reticulocyte Count 1.8 % Immature Reticulocyte Fraction 0.48 Sodium Level 143 mmol/L 142 mmol/L Potassium Level 3.2 mmol/L 3.4 mmol/L Chloride Level 107 mmol/L 107 mmol/L Carbon Dioxide Level 28 mmol/L 30 mmol/L Anion Gap 8 5 Blood Urea Nitrogen 7 mg/dL 8 mg/dL Creatinine 0.8 mg/dL 0.8 mg/dL Estimated GFR (Cockcroft-Gault) 70.1 70.1 BUN/Creatinine Ratio 9 Glucose Level 115 mg/dL 91 mg/dL Calcium Level 8.4 mg/dL 7.9 mg/dL Iron Level 17 ug/dL Total Iron Binding Capacity 401 ug/dL Iron Saturation 4 % Total Bilirubin 2.2 mg/dL Aspartate Amino Transf (AST/SGOT) 7 U/L Alanine Aminotransferase (ALT/SGPT) 7 U/L Alkaline Phosphatase 130 U/L C-Reactive Protein, Quantitative 1.2 mg/L Total Protein 6.2 g/dL Albumin 2.7 g/dL Albumin/Globulin Ratio 0.8 Vitamin B12 Level 146 pg/mL Procalcitonin < 0.10 ng/mL BLOOD CULTURE Preliminary NO GROWTH AFTER 1 DAY PE: GEN: NAD LUNGS: diminished anteriorly, room air HEART: RRR ABD: S/NT, large/overweight NEURO/PSYCH: A & O 3 A/P: Anemia - iron and B12 deficient - replacement started, ongoing need for transfusions w/o obvious bleeding H/o reflux, s/p gastric bypass, recent constipation ?CAD - Plavix and ASA on home med list - getting ASA here COVID negative, ?UTI -- Pt preference to avoid EGD - will consider as outpt - our office will follow-up. Discussed need for iron (and possible adverse effects) and B12 supplementation in some form. Would continue PPI. Could consider Carafate. Adjust Miralax as needed. Justicifation of Admission Dx: Justifications for Admission: Justification of Admission Dx: Yes IMELDA ARMIJO May 02, 2021 10:05
[2021-05-02] MEDS: ASPIRIN 325 MG TABLET PO SCH (10:49)
[2021-05-02] MEDS: ISOSORBIDE MONONITRATE ER 30 MG TAB.ER.24H PO SCH (10:49)
[2021-05-02] MEDS: PANTOPRAZOLE 40 MG TABLET.DR. PO SCH (10:49)
[2021-05-02] MEDS: DULoxetine HCL 30 MG CAPSULE.DR PO SCH (10:49)
[2021-05-02] MEDS: ALPRAZolam 1 MG TABLET PO SCH ×2 (10:49→15:04)
[2021-05-02] MEDS: CARVEDILOL 12.5 MG TABLET. PO SCH ×2 (10:50→17:53)
[2021-05-02] MEDS: FERROUS SULFATE 325 MG TABLET. PO SCH ×2 (10:50→17:54)
[2021-05-02] MEDS: CLOPIDOGREL BISULFATE 75 MG TABLET PO SCH (10:50)
[2021-05-02] MEDS: LOSARTAN POTASSIUM 25 MG TABLET. PO SCH (10:50)
[2021-05-02] MEDS: CYANOCOBALAMIN (VITAMIN B-12) 1,000 MCG/ML VIAL. IM SCH (10:51)
[2021-05-02] MEDS: POLYETHYLENE GLYCOL 3350 17 GM PACKET. PO SCH (10:51)
--- NOTE | 2021-05-02 12:01 | PDOC ---
[employer] PROGRESS NOTE Date of Service DOS: DATE: 05/02/21 TIME: 11:59 Chief Complaint Chief Complaint Severe microcytic anemia Moderate malnutrition HTN History COPD Moderate malnutrition Plan: Hemoglobin 4.9, hematocrit 17.1 on admission. Patient will be transfused 2 unit packed red blood cells. Fecal occult blood negative. We will continue to monitor hemoglobin for any evidence of ongoing bleeding. CRP and procalcitonin pending; if significantly elevated will continue treatment for possible community-acquired pneumonia Asymptomatic bacteriuria does not require antibiotic treatment Resume home medications FEN - Cardiac diet PPX - SCDs FULL CODE Dispo - inpatient for above Patient names her (Edi Pagan) as her surrogate decision-maker History of Present Illness History of Present Illness Patient is 75-year-old female with past medical history COPD, HTN, gastric bypass surgery, presents to the ED with complaints of nausea and abdominal pain for the past 2 days. She describes her nausea is more of a "sour stomach". She is a history of similar symptoms in the past following her gastric bypass surgery, but the last time she had any similar symptoms was years ago. She also reports associated dyspnea on exertion, lethargy, and lightheadedness. She denies any melena, hematochezia, vomiting, hematemesis, fever, chest pain, syncope, dysuria, or headache. She denies any history of gastric ulcers or history of anemia. She has been vaccinated against COVID-19. Labs admission showed hemoglobin 4.9, hematocrit 17.1, MCV 54, potassium 3.4, albumin 2.8. Urinalysis was positive for nitrites, with small leukocyte esterase, many bacteria, and moderate squamous epithelial cells. Her rapid COVID-19 was negative, and her occult blood was negative. She received IV fluids and IV antibiotics in the ED. At the time my evaluation she is hungry and requesting food. Will admit patient for further medical management. 05/02/2021: Hemoglobin 6.8 today after 2 units PRBC. Will transfuse third unit today. GI has been consulted to help with source of blood loss. Labs very consistent with iron deficiency anemia. Continue to monitor hemoglobin. Vitals/I&O Vitals/I&O: Vital Signs Date Time Temp Pulse Resp B/P (MAP) Pulse Ox O2 Delivery O2 Flow Rate FiO2 05/02/21 11:00 98.3 62 20 135/46 98.3 05/02/21 10:44 92 Room Air I & O 05/01/21 05/01/21 05/02/21 15:00 23:00 07:00 Intake Total 480 ml 643 ml 760 ml Balance 480 ml 643 ml 760 ml Physical Exam General: Alert, Oriented X3, Cooperative, No acute distress Heart: Regular rate Lungs: Clear Abdomen: Soft, No tenderness Extremities: No clubbing, No cyanosis Skin: No rashes, No breakdown Labs Labs: Laboratory Tests Test 05/01/21 18:20 05/02/21 06:12 Hemoglobin 7.1 g/dL (12.0-15.5) 6.8 g/dL (12.0-15.5) Hematocrit 24.0 % (36.0-47.0) 23.0 % (36.0-47.0) Mean Corpuscular Hemoglobin Concent 29 g/dL (31-37) 30 g/dL (31-37) White Blood Count 4.6 x10^3/uL (4.0-11.0) Red Blood Count 3.68 x10^6/uL (3.50-5.40) Mean Corpuscular Volume 62 fL (79-100) Mean Corpuscular Hemoglobin 19 pg (25-35) Red Cell Distribution Width 29.5 % (11.5-14.5) Platelet Count 245 x10^3/uL (140-400) Neutrophils (%) (Auto) 65 % (31-73) Lymphocytes (%) (Auto) 18 % (24-48) Monocytes (%) (Auto) 10 % (0-9) Eosinophils (%) (Auto) 6 % (0-3) Basophils (%) (Auto) 0 % (0-3) Neutrophils # (Auto) 3.0 x10^3/uL (1.8-7.7) Lymphocytes # (Auto) 0.8 x10^3/uL (1.0-4.8) Monocytes # (Auto) 0.5 x10^3/uL (0.0-1.1) Eosinophils # (Auto) 0.3 x10^3/uL (0.0-0.7) Basophils # (Auto) 0.0 x10^3/uL (0.0-0.2) Sodium Level 142 mmol/L (136-145) Potassium Level 3.4 mmol/L (3.5-5.1) Chloride Level 107 mmol/L (98-107) Carbon Dioxide Level 30 mmol/L (21-32) Anion Gap 5 (6-14) Blood Urea Nitrogen 8 mg/dL (7-20) Creatinine 0.8 mg/dL (0.6-1.0) Estimated GFR (Cockcroft-Gault) 70.1 Glucose Level 91 mg/dL (70-99) Calcium Level 7.9 mg/dL (8.5-10.1) Assessment and Plan Assessmemt and Plan Problems Medical Problems: (1) Abdominal pain Status: Acute (2) Anemia Status: Acute (3) Nausea & vomiting Status: Acute (4) Person under investigation for COVID-19 Status: Acute (5) UTI (urinary tract infection) Status: Acute Comment Review of Relevant I have reviewed the following items esha (where applicable) has been applied. Medications: Current Medications Medications (Trade) Dose Ordered Sig/Ashlie Route PRN Reason Start Time Stop Time Status Last Admin Dose Admin Ferrous Sulfate (Feosol) 325 mg BIDWMEALS PO 05/01/21 17:00 05/02/21 10:50 Potassium Chloride (Klor-Con) 20 meq 1X ONCE PO 05/01/21 12:30 05/01/21 17:30 DC 05/01/21 13:10 Alprazolam (Xanax) 1 mg BID92 PO 05/01/21 14:00 05/02/21 10:49 Aspirin (Isaura Aspirin) 325 mg DAILY PO 05/01/21 13:00 05/02/21 10:49 Atorvastatin Calcium (Lipitor) 80 mg QHS PO 05/01/21 21:00 05/01/21 20:40 Carvedilol (Coreg) 12.5 mg DAILYWSUP PO 05/01/21 17:00 05/01/21 18:14 Clopidogrel Bisulfate (Plavix) 75 mg DAILY PO 05/01/21 13:00 05/02/21 10:50 Diazepam (Valium) 2 mg HS PO 05/01/21 21:00 05/01/21 20:39 Duloxetine HCl (Cymbalta) 30 mg DAILY PO 05/01/21 13:00 05/02/21 10:49 Carvedilol (Coreg) 25 mg DAILYWBKFT PO 05/02/21 08:00 05/02/21 10:50 Losartan Potassium (Cozaar) 25 mg DAILY PO 05/01/21 13:00 05/02/21 10:50 Isosorbide Mononitrate (Imdur) 60 mg DAILY PO 05/01/21 13:00 05/02/21 10:49 Cyanocobalamin (Vitamin B-12 Inj) 1,000 mcg DAILY IM 05/01/21 13:15 05/02/21 10:51 Justifications for Admission Other Justification CHARLEY YOUNG MD May 02, 2021 12:01
[2021-05-02 16:32] LABS: HEMATOCRIT 25.8 % (36.0-47.0); HEMOGLOBIN 7.7 g/dL (12.0-15.5)
[2021-05-02] MEDS ORDERED: POTASSIUM CHLORIDE 20 MEQ TABLET.ER. PO ONE (17:00)
[2021-05-02] MEDS: ATORVASTATIN CALCIUM 40 MG TABLET. PO SCH (20:19)
[2021-05-02] MEDS: diazePAM 2 MG TABLET PO SCH (20:19)
[2021-05-03 03:00] VITALS: BP 119/57
[2021-05-03 07:00] VITALS: BP 131/55
[2021-05-03] MEDS: POLYETHYLENE GLYCOL 3350 17 GM PACKET. PO SCH (09:21)
[2021-05-03] MEDS: ISOSORBIDE MONONITRATE ER 30 MG TAB.ER.24H PO SCH (09:22)
[2021-05-03 09:30] LABS: BASO % 1 % (0-3); CALCIUM 8.2 mg/dL (8.5-10.1); CREATININE 0.7 mg/dL (0.6-1.0); EOS # 0.3 x10^3/uL (0.0-0.7); EOS % 6 % (0-3); GFR 81.8; LYMPH # 0.8 x10^3/uL (1.0-4.8); LYMPH % 15 % (24-48); MEAN CORPUSCULAR HEMOGLOBIN 19 pg (25-35); MEAN CORPUSCULAR HGB CONC 30 g/dL (31-37); MEAN CORPUSCULAR VOLUME 65 fL (79-100); MONO # 0.4 x10^3/uL (0.0-1.1); MONO % 8 % (0-9); NEUT # 3.6 x10^3/uL (1.8-7.7); NEUT % 71 % (31-73); PLATELET COUNT 238 x10^3/uL (140-400); RED BLOOD COUNT 4.15 x10^6/uL (3.50-5.40); WHITE BLOOD COUNT 5.1 x10^3/uL (4.0-11.0)
[2021-05-03] MEDS: PANTOPRAZOLE 40 MG TABLET.DR. PO SCH (09:31)
[2021-05-03] MEDS: CARVEDILOL 12.5 MG TABLET. PO SCH ×2 (09:31→17:03)
[2021-05-03] MEDS: DULoxetine HCL 30 MG CAPSULE.DR PO SCH (09:31)
[2021-05-03] MEDS: ASPIRIN 325 MG TABLET PO SCH (09:31)
[2021-05-03] MEDS: CLOPIDOGREL BISULFATE 75 MG TABLET PO SCH (09:31)
[2021-05-03] MEDS: FERROUS SULFATE 325 MG TABLET. PO SCH ×2 (09:31→17:03)
[2021-05-03] MEDS: ALPRAZolam 1 MG TABLET PO SCH ×2 (09:31→14:59)
[2021-05-03] MEDS: LOSARTAN POTASSIUM 25 MG TABLET. PO SCH (09:32)
[2021-05-03] MEDS: CYANOCOBALAMIN (VITAMIN B-12) 1,000 MCG/ML VIAL. IM SCH (09:32)
[2021-05-03 11:00] VITALS: BP 123/58
--- NOTE | 2021-05-03 11:51 | NUR ---
SW following. Discussed with RN, pt from home with family, room air, cardiac diet. COVID-19 negative. RN advised no SW needs at this time. SW will continue to follow.
--- NOTE | 2021-05-03 12:08 | PDOC ---
Date of Service: DATE: 05/03/21 TIME: 12:05 Subjective: Subjective: Feels much better, really wants to go home. Asks about reducing ASA dose. Objective: Vital Signs: Vital Signs Date Time Temp Pulse Resp B/P (MAP) Pulse Ox O2 Delivery O2 Flow Rate FiO2 05/03/21 11:00 97.7 55 18 123/58 (79) 94 Room Air 97.7 Labs: Laboratory Tests Test 05/02/21 16:20 05/03/21 08:55 Hemoglobin 7.7 g/dL 8.0 g/dL Hematocrit 25.8 % 27.0 % Mean Corpuscular Hemoglobin Concent 30 g/dL 30 g/dL White Blood Count 5.1 x10^3/uL Red Blood Count 4.15 x10^6/uL Mean Corpuscular Volume 65 fL Mean Corpuscular Hemoglobin 19 pg Red Cell Distribution Width 32.0 % Platelet Count 238 x10^3/uL Neutrophils (%) (Auto) 71 % Lymphocytes (%) (Auto) 15 % Monocytes (%) (Auto) 8 % Eosinophils (%) (Auto) 6 % Basophils (%) (Auto) 1 % Neutrophils # (Auto) 3.6 x10^3/uL Lymphocytes # (Auto) 0.8 x10^3/uL Monocytes # (Auto) 0.4 x10^3/uL Eosinophils # (Auto) 0.3 x10^3/uL Basophils # (Auto) 0.0 x10^3/uL Sodium Level 141 mmol/L Potassium Level 4.0 mmol/L Chloride Level 107 mmol/L Carbon Dioxide Level 29 mmol/L Anion Gap 5 Blood Urea Nitrogen 7 mg/dL Creatinine 0.7 mg/dL Estimated GFR (Cockcroft-Gault) 81.8 Glucose Level 109 mg/dL Calcium Level 8.2 mg/dL PE: GEN: NAD LUNGS: CTAB HEART: RRR ABD: S/ND/NT NEURO/PSYCH: A & O 3 A/P: Anemia - iron and B12 deficient H/o reflux, s/p gastric bypass, constipation CAD w/ cardiac stents - placed >1 year ago, on ASA 325mg QD + Plavix COVID negative -- Hgb improved w/ transfusions, no obvious GI bleeding. DC per primary on PPI, iron, B12, and Miralax. Monitor labs w/ PCP. Follow-up w/ cardiology re: her questions about ASA, etc. She will consider EGD as outpt. Justicifation of Admission Dx: Justifications for Admission: Justification of Admission Dx: Yes IMELDA ARMIJO May 03, 2021 12:08
--- NOTE | 2021-05-03 14:55 | PDOC ---
[employer] PROGRESS NOTE Date of Service DOS: DATE: 05/03/21 TIME: 14:53 Chief Complaint Chief Complaint Severe microcytic anemia Moderate malnutrition HTN History COPD Moderate malnutrition Plan: Hemoglobin 4.9, hematocrit 17.1 on admission. Patient will be transfused 2 unit packed red blood cells. Fecal occult blood negative. We will continue to monitor hemoglobin for any evidence of ongoing bleeding. CRP and procalcitonin pending; if significantly elevated will continue treatment for possible community-acquired pneumonia Asymptomatic bacteriuria does not require antibiotic treatment Resume home medications FEN - Cardiac diet PPX - SCDs FULL CODE Dispo - inpatient for above Patient names her (Edi Pagan) as her surrogate decision-maker History of Present Illness History of Present Illness Patient is 75-year-old female with past medical history COPD, HTN, gastric bypass surgery, presents to the ED with complaints of nausea and abdominal pain for the past 2 days. She describes her nausea is more of a "sour stomach". She is a history of similar symptoms in the past following her gastric bypass surgery, but the last time she had any similar symptoms was years ago. She also reports associated dyspnea on exertion, lethargy, and lightheadedness. She denies any melena, hematochezia, vomiting, hematemesis, fever, chest pain, syncope, dysuria, or headache. She denies any history of gastric ulcers or history of anemia. She has been vaccinated against COVID-19. Labs admission showed hemoglobin 4.9, hematocrit 17.1, MCV 54, potassium 3.4, albumin 2.8. Urinalysis was positive for nitrites, with small leukocyte esterase, many bacteria, and moderate squamous epithelial cells. Her rapid COVID-19 was negative, and her occult blood was negative. She received IV fluids and IV antibiotics in the ED. At the time my evaluation she is hungry and requesting food. Will admit patient for further medical management. 05/02/2021: Hemoglobin 6.8 today after 2 units PRBC. Will transfuse third unit today. GI has been consulted to help with source of blood loss. Labs very consistent with iron deficiency anemia. Continue to monitor hemoglobin. 05/03/2021: Hemoglobin 8.1. Overall she is feeling much better. She would like to go home. Per GI, she can follow-up as outpatient for EGD. Greater than 30 minutes spent managing the discharge of this patient. Vitals/I&O Vitals/I&O: Vital Signs Date Time Temp Pulse Resp B/P (MAP) Pulse Ox O2 Delivery O2 Flow Rate FiO2 05/03/21 11:00 97.7 55 18 123/58 (79) 94 Room Air 97.7 I & O 05/02/21 05/02/21 05/03/21 15:00 23:00 07:00 Intake Total 863 ml 360 ml 0 ml Balance 863 ml 360 ml 0 ml Physical Exam General: Alert, Oriented X3, Cooperative, No acute distress Heart: Regular rate Lungs: Clear Abdomen: Soft, No tenderness Extremities: No clubbing, No cyanosis Skin: No rashes, No breakdown Labs Labs: Laboratory Tests Test 05/02/21 16:20 05/03/21 08:55 Hemoglobin 7.7 g/dL (12.0-15.5) 8.0 g/dL (12.0-15.5) Hematocrit 25.8 % (36.0-47.0) 27.0 % (36.0-47.0) Mean Corpuscular Hemoglobin Concent 30 g/dL (31-37) 30 g/dL (31-37) White Blood Count 5.1 x10^3/uL (4.0-11.0) Red Blood Count 4.15 x10^6/uL (3.50-5.40) Mean Corpuscular Volume 65 fL (79-100) Mean Corpuscular Hemoglobin 19 pg (25-35) Red Cell Distribution Width 32.0 % (11.5-14.5) Platelet Count 238 x10^3/uL (140-400) Neutrophils (%) (Auto) 71 % (31-73) Lymphocytes (%) (Auto) 15 % (24-48) Monocytes (%) (Auto) 8 % (0-9) Eosinophils (%) (Auto) 6 % (0-3) Basophils (%) (Auto) 1 % (0-3) Neutrophils # (Auto) 3.6 x10^3/uL (1.8-7.7) Lymphocytes # (Auto) 0.8 x10^3/uL (1.0-4.8) Monocytes # (Auto) 0.4 x10^3/uL (0.0-1.1) Eosinophils # (Auto) 0.3 x10^3/uL (0.0-0.7) Basophils # (Auto) 0.0 x10^3/uL (0.0-0.2) Sodium Level 141 mmol/L (136-145) Potassium Level 4.0 mmol/L (3.5-5.1) Chloride Level 107 mmol/L (98-107) Carbon Dioxide Level 29 mmol/L (21-32) Anion Gap 5 (6-14) Blood Urea Nitrogen 7 mg/dL (7-20) Creatinine 0.7 mg/dL (0.6-1.0) Estimated GFR (Cockcroft-Gault) 81.8 Glucose Level 109 mg/dL (70-99) Calcium Level 8.2 mg/dL (8.5-10.1) Assessment and Plan Assessmemt and Plan Problems Medical Problems: (1) Abdominal pain Status: Acute (2) Anemia Status: Acute (3) Nausea & vomiting Status: Acute (4) Person under investigation for COVID-19 Status: Acute (5) UTI (urinary tract infection) Status: Acute Comment Review of Relevant I have reviewed the following items esha (where applicable) has been applied. Medications: Current Medications Medications (Trade) Dose Ordered Sig/Ashlie Route PRN Reason Start Time Stop Time Status Last Admin Dose Admin Potassium Chloride (Klor-Con) 20 meq 1X ONCE PO 05/02/21 17:00 05/02/21 17:01 DC 05/02/21 17:54 Justifications for Admission Other Justification CHARLEY YOUNG MD May 03, 2021 14:55
[2021-05-03 15:00] VITALS: BP 120/57
--- NOTE | 2021-05-03 15:37 | PDOC3 ---
Discharge Summary Visit Information Date of Admission: May 01, 2021 Date of Discharge: May 03, 2021 Final Diagnosis Problems Medical Problems: (1) Abdominal pain Status: Acute (2) Anemia Status: Acute (3) Nausea & vomiting Status: Acute (4) Person under investigation for COVID-19 Status: Acute (5) UTI (urinary tract infection) Status: Acute Brief Hospital Course Allergies Allergies Coded Allergies Type Severity Reaction Last Updated Verified Iodinated Contrast Media Allergy Severe 01/28/16 Yes Vital Signs Vital Signs Date Time Temp Pulse Resp B/P (MAP) Pulse Ox O2 Delivery O2 Flow Rate FiO2 05/03/21 11:00 97.7 55 18 123/58 (79) 94 Room Air 97.7 Lab Results Laboratory Tests Test 05/01/21 18:20 05/02/21 06:12 05/02/21 16:20 05/03/21 08:55 Hemoglobin 7.1 g/dL (12.0-15.5) 6.8 g/dL (12.0-15.5) 7.7 g/dL (12.0-15.5) 8.0 g/dL (12.0-15.5) Hematocrit 24.0 % (36.0-47.0) 23.0 % (36.0-47.0) 25.8 % (36.0-47.0) 27.0 % (36.0-47.0) Mean Corpuscular Hemoglobin Concent 29 g/dL (31-37) 30 g/dL (31-37) 30 g/dL (31-37) 30 g/dL (31-37) White Blood Count 4.6 x10^3/uL (4.0-11.0) 5.1 x10^3/uL (4.0-11.0) Red Blood Count 3.68 x10^6/uL (3.50-5.40) 4.15 x10^6/uL (3.50-5.40) Mean Corpuscular Volume 62 fL (79-100) 65 fL (79-100) Mean Corpuscular Hemoglobin 19 pg (25-35) 19 pg (25-35) Red Cell Distribution Width 29.5 % (11.5-14.5) 32.0 % (11.5-14.5) Platelet Count 245 x10^3/uL (140-400) 238 x10^3/uL (140-400) Neutrophils (%) (Auto) 65 % (31-73) 71 % (31-73) Lymphocytes (%) (Auto) 18 % (24-48) 15 % (24-48) Monocytes (%) (Auto) 10 % (0-9) 8 % (0-9) Eosinophils (%) (Auto) 6 % (0-3) 6 % (0-3) Basophils (%) (Auto) 0 % (0-3) 1 % (0-3) Neutrophils # (Auto) 3.0 x10^3/uL (1.8-7.7) 3.6 x10^3/uL (1.8-7.7) Lymphocytes # (Auto) 0.8 x10^3/uL (1.0-4.8) 0.8 x10^3/uL (1.0-4.8) Monocytes # (Auto) 0.5 x10^3/uL (0.0-1.1) 0.4 x10^3/uL (0.0-1.1) Eosinophils # (Auto) 0.3 x10^3/uL (0.0-0.7) 0.3 x10^3/uL (0.0-0.7) Basophils # (Auto) 0.0 x10^3/uL (0.0-0.2) 0.0 x10^3/uL (0.0-0.2) Sodium Level 142 mmol/L (136-145) 141 mmol/L (136-145) Potassium Level 3.4 mmol/L (3.5-5.1) 4.0 mmol/L (3.5-5.1) Chloride Level 107 mmol/L (98-107) 107 mmol/L (98-107) Carbon Dioxide Level 30 mmol/L (21-32) 29 mmol/L (21-32) Anion Gap 5 (6-14) 5 (6-14) Blood Urea Nitrogen 8 mg/dL (7-20) 7 mg/dL (7-20) Creatinine 0.8 mg/dL (0.6-1.0) 0.7 mg/dL (0.6-1.0) Estimated GFR (Cockcroft-Gault) 70.1 81.8 Glucose Level 91 mg/dL (70-99) 109 mg/dL (70-99) Calcium Level 7.9 mg/dL (8.5-10.1) 8.2 mg/dL (8.5-10.1) Laboratory Tests Test 05/02/21 16:20 05/03/21 08:55 Hemoglobin 7.7 g/dL (12.0-15.5) 8.0 g/dL (12.0-15.5) Hematocrit 25.8 % (36.0-47.0) 27.0 % (36.0-47.0) Mean Corpuscular Hemoglobin Concent 30 g/dL (31-37) 30 g/dL (31-37) White Blood Count 5.1 x10^3/uL (4.0-11.0) Red Blood Count 4.15 x10^6/uL (3.50-5.40) Mean Corpuscular Volume 65 fL (79-100) Mean Corpuscular Hemoglobin 19 pg (25-35) Red Cell Distribution Width 32.0 % (11.5-14.5) Platelet Count 238 x10^3/uL (140-400) Neutrophils (%) (Auto) 71 % (31-73) Lymphocytes (%) (Auto) 15 % (24-48) Monocytes (%) (Auto) 8 % (0-9) Eosinophils (%) (Auto) 6 % (0-3) Basophils (%) (Auto) 1 % (0-3) Neutrophils # (Auto) 3.6 x10^3/uL (1.8-7.7) Lymphocytes # (Auto) 0.8 x10^3/uL (1.0-4.8) Monocytes # (Auto) 0.4 x10^3/uL (0.0-1.1) Eosinophils # (Auto) 0.3 x10^3/uL (0.0-0.7) Basophils # (Auto) 0.0 x10^3/uL (0.0-0.2) Sodium Level 141 mmol/L (136-145) Potassium Level 4.0 mmol/L (3.5-5.1) Chloride Level 107 mmol/L (98-107) Carbon Dioxide Level 29 mmol/L (21-32) Anion Gap 5 (6-14) Blood Urea Nitrogen 7 mg/dL (7-20) Creatinine 0.7 mg/dL (0.6-1.0) Estimated GFR (Cockcroft-Gault) 81.8 Glucose Level 109 mg/dL (70-99) Calcium Level 8.2 mg/dL (8.5-10.1) Brief Hospital Course Ms. Oneill is a 75 old female who presented with Severe microcytic anemia, Moderate malnutrition, HTN, History COPD, Moderate malnutrition Patient is 75-year-old female with past medical history COPD, HTN, gastric bypass surgery, presents to the ED with complaints of nausea and abdominal pain for the past 2 days. She describes her nausea is more of a "sour stomach". She is a history of similar symptoms in the past following her gastric bypass surgery, but the last time she had any similar symptoms was years ago. She also reports associated dyspnea on exertion, lethargy, and lightheadedness. She denies any melena, hematochezia, vomiting, hematemesis, fever, chest pain, syncope, dysuria, or headache. She denies any history of gastric ulcers or history of anemia. She has been vaccinated against COVID-19. Labs admission showed hemoglobin 4.9, hematocrit 17.1, MCV 54, potassium 3.4, albumin 2.8. Urinalysis was positive for nitrites, with small leukocyte esterase, many bacteria, and moderate squamous epithelial cells. Her rapid COVID-19 was negative, and her occult blood was negative. She received IV fluids and IV antibiotics in the ED. At the time my evaluation she is hungry and requesting food. Will admit patient for further medical management. 05/02/2021: Hemoglobin 6.8 today after 2 units PRBC. Will transfuse third unit today. GI has been consulted to help with source of blood loss. Labs very consistent with iron deficiency anemia. Continue to monitor hemoglobin. 05/03/2021: Hemoglobin 8.1. Overall she is feeling much better. She would like to go home. Per GI, she can follow-up as outpatient for EGD. Greater than 30 minutes spent managing the discharge of this patient. Discharge Information Condition at Discharge: Improved Disposition/Orders: D/C to Home Scheduled Alprazolam (Alprazolam) 1 Mg Tablet, 1 TAB PO BID, #60 (Reported) Entered as Reported by: ALECIA CHAVEZ on 02/13/15 1001 Last Action: Continued on 05/01/211228 by RIGO NGUYEN RN Aspirin (Aspirin) 325 Mg Tablet, 1 TAB PO DAILY for heart, #30 Ref 5 (Reported) Entered as Reported by: RIGO NGUYEN RN on 05/01/211207 Last Taken: Unknown Dose on 04/28/21 Last Action: Continued on 05/01/211228 by RIGO NGUYEN RN Atorvastatin Calcium (Atorvastatin Calcium) 40 Mg Tablet, 2 TAB PO DAILY for HLD, #30 Ref 5 (Reported) Entered as Reported by: RIGO NGUYEN RN on 05/01/211207 Last Taken: Unknown Dose on 04/28/21 Last Action: Continued on 05/01/211228 by RIGO NGUYEN RN Carvedilol (Carvedilol) 25 Mg Tablet, 25 MG PO DAILY for CARDIAC, (Reported) Entered as Reported by: RIGO NGUYEN RN on 05/01/211207 Last Taken: Unknown Dose on 04/28/21 Last Action: Converted on 05/01/211228 by RIGO NGUYEN RN Carvedilol (Carvedilol ) 12.5 Mg Tablet, 12.5 MG PO DAILYWSUP for CARDIAC, (Reported) Entered as Reported by: RIGO NGUYEN RN on 05/01/211207 Last Taken: Unknown Dose on 04/28/21 Last Action: Continued on 05/01/211228 by RIGO NGUYEN RN Clopidogrel Bisulfate (Clopidogrel) 75 Mg Tablet, 1 TAB PO DAILY for a- flutter/cardiac stents, #90 Ref 1 (Reported) Entered as Reported by: RIGO NGUYEN RN on 05/01/211207 Last Taken: Unknown Dose on 04/28/21 Last Action: Continued on 05/01/211228 by RIGO NGUYEN RN Diazepam (Valium) 2 Mg Tablet, 2 MG PO HS for insomnia, (Reported) Entered as Reported by: RIGO NGUYEN RN on 05/01/211207 Last Taken: Unknown Dose on 04/28/21 Last Action: Continued on 05/01/211228 by RIGO NGUYEN RN Duloxetine Hcl (Cymbalta) 30 Mg Capsule.dr, 1 CAP PO DAILY for depression, #30 Ref 5 (Reported) Entered as Reported by: RIGO NGUYEN RN on 05/01/211207 Last Taken: Unknown Dose on 04/28/21 Last Action: Continued on 05/01/211228 by RIGO NGUYEN RN Irbesartan (Irbesartan) 150 Mg Tablet, 75 MG PO DAILY for HTN, (Reported) Entered as Reported by: RIGO NGUYEN RN on 05/01/211207 Last Taken: Unknown Dose on 04/28/21 Last Action: Converted on 05/01/211228 by RIGO NGUYEN RN Isosorbide Mononitrate (Isosorbide Mononitrate Er) 60 Mg Tab.er.24h, 1 TAB PO DAILY, #30 Ref 5 (Reported) Entered as Reported by: ALECIA CHAVEZ on 02/13/15 1000 Last Action: Converted on 05/01/211228 by RIGO NGUYEN RN Pantoprazole Sodium (Pantoprazole Sodium ) 40 Mg Tablet.dr, 40 MG PO DAILYAC for GERD, (Reported) Entered as Reported by: RIGO NGUYEN RN on 05/01/211207 Last Taken: Unknown Dose on 04/28/21 Last Action: New Order on 05/01/211207 by RIGO NGUYEN RN Discontinued Medications Carvedilol (Carvedilol ) 12.5 Mg Tablet, 1 TAB PO BID, #180 Ref 1 (Reported) Entered as Reported by: ALECIA CHAVEZ on 02/13/15 1000 Last Action: Discontinued on 05/01/211207 by RIGO NGUYEN RN Diazepam (Diazepam) 5 Mg Tablet, 5 MG PO HS, (Reported) Entered as Reported by: PALLAVI GARCIA on 01/25/17 1446 Last Action: Discontinued on 05/01/211207 by RIGO NGUYEN RN Irbesartan (Irbesartan) 300 Mg Tablet, 0.5 TAB PO DAILY, #30 Ref 5 (Reported) Entered as Reported by: PALLAVI GARCIA on 01/25/17 9477 Last Action: Discontinued on 05/01/211207 by RIGO NGUYEN RN Justicifation of Admission Dx: Justifications for Admission: Justification of Admission Dx: Yes CHARLEY YOUNG MD May 03, 2021 15:37
[2021-05-03 17:03] VITALS: BP 120/57
--- NOTE | 2021-05-03 17:40 | NUR ---
Discharge Note: [facility] Discharge instructions and discharge home medications reviewed with Patient and a copy given. All questions have been answered and understanding verbalized. The following instructions and handouts were given: Follow up with PCP. Follow up OP with GI Discontinued IV lines and telemetry. Patient discharged to Home with Self-care.
== END 2021-05-03 17:40 | disposition home or self-care (01) | DRG 812 ==
LOC: ER 18:45 → ED HOLD 20:21 → 5 SOUTH 22:06
PROVIDERS: ADMIT Family Medicine; ATTEND Family Medicine
PROC: 30233N1 Transfusion of Nonautologous Red Blood Cells into Peripheral Vein, Percutaneous Approach (ICD-10-PCS; principal; 2021-05-01)
DX: D50.9 Iron deficiency anemia, unspecified (principal); N39.0 Urinary tract infection, site not specified; E44.0 Moderate protein-calorie malnutrition; I48.92 Unspecified atrial flutter; Z68.41 Body mass index [BMI] 40.0-44.9, adult; E53.8 Deficiency of other specified B group vitamins; E78.5 Hyperlipidemia, unspecified; F17.210 Nicotine dependence, cigarettes, uncomplicated; F32.A Depression, unspecified; G47.00 Insomnia, unspecified; I10 Essential (primary) hypertension; I25.10 Atherosclerotic heart disease of native coronary artery without angina pectoris; J44.9 Chronic obstructive pulmonary disease, unspecified; K21.9 Gastro-esophageal reflux disease without esophagitis; K57.90 Diverticulosis of intestine, part unspecified, without perforation or abscess without bleeding; K59.00 Constipation, unspecified; N28.1 Cyst of kidney, acquired; F41.9 Anxiety disorder, unspecified; Z20.822 Contact with and (suspected) exposure to COVID-19; Z79.02 Long term (current) use of antithrombotics/antiplatelets; Z79.82 Long term (current) use of aspirin; Z79.899 Other long term (current) drug therapy; Z82.49 Family history of ischemic heart disease and other diseases of the circulatory system; Z90.49 Acquired absence of other specified parts of digestive tract; Z95.5 Presence of coronary angioplasty implant and graft; Z96.641 Presence of right artificial hip joint; Z96.653 Presence of artificial knee joint, bilateral; Z98.84 Bariatric surgery status
CPT/HCPCS: 36415; 36430; 71045; 74176; 80048; 80053; 81001; 82274; 82607; 83540; 83550; 83605; 83690; 83735; 84145; 84484; 85014; 85018; 85025; 85045; 85610; 85730; 86140; 86850; 86900; 86901; 86920; 87040; 87077; 87086; 87186; 87426; 93005; 96365; 96375; J2405; J2543; J3010; J3420; J7030; P9016; U0003; U0005; 99285-25; G0378